=== PATIENT | female | born 1990 | race Caucasian/White ===

== ENCOUNTER 2018-02-11 12:06 | Inpatient (IN) ==
[2018-02-11] MEDS ORDERED: Ondansetron 4 MG/2 ML VIAL IVP PRN ×2 (12:44→17:26)
[2018-02-11] MEDS ORDERED: Metoclopramide 10 MG/2 ML VIAL IVP PRN (12:44)
[2018-02-11] MEDS ORDERED: Famotidine 20 MG/2 ML VIAL IVP PRN (12:44)
[2018-02-11] MEDS ORDERED: Naloxone 0.4 MG/ML INJ IVP PRN ×2 (12:44→17:26)
[2018-02-11] MEDS ORDERED: *HR* Nalbuphine 10 MG/ML AMPUL IVP PRN (12:44)
[2018-02-11] MEDS ORDERED: Ringers Solution, Lactated 1,000 ML IVC SCH (12:45)
[2018-02-11] MEDS ORDERED: D5% in 0.9% NACL 1,000 ML IVC SCH (13:00)
[2018-02-11] MEDS ORDERED: Ringers Solution, Lactated 1,000 ML ONE (13:09)
[2018-02-11 13:59] LABS: Basophils % 0.1 %; Eosinophils # 0.1 K/mcL (0.0-0.6); Eosinophils % 0.9 %; Hematocrit 38.4 % (35.3-44.9); Hemoglobin 12.6 g/dL (11.5-15.4); Immature Granulocytes % 0.5 % (0-4); Lymphocytes # 3.1 K/mcL (0.6-4.6); Lymphocytes % 19.9 %; Mean Corpuscular HGB Conc 32.8 g/dL (31.6-35.5); Mean Corpuscular Hemoglobin 27.3 pg (28.0-33.3); Mean Corpuscular Volume 83.1 fL (83.0-100.0); Mean Platelet Volume 9.7 fL (9.4-12.4); Monocytes # 1.2 K/mcL (0.0-1.3); Monocytes % 7.9 %; Neutrophils # 10.9 K/mcL (1.6-8.9); Platelet Count 281 K/mcL (140-400); Red Blood Count 4.62 M/mcL (3.82-4.97); Segmented Neutrophils % 70.7 %
[2018-02-11] MEDS ORDERED: Oxytocin 20 units/ LR 1000 mL 20 UNIT/1,000 ML BAG IVC SCH ×2 (14:30→22:32)
[2018-02-11 14:58] LABS: Amphetamine Screen,Urine Negative ng/mL (Cutoff=1000); Barbiturate Screen,Urine Negative ng/mL (Cutoff=200); Benzodiazepines Screen,Urine Negative ng/mL (Cutoff=200); Cannabinoid Screen,Urine Negative ng/mL (Cutoff = 50); Cocaine Screen,Urine Negative ng/mL (Cutoff= 300); Creatinine,Urine 35 mg/dL; Opiate Screen,Urine Negative ng/mL (Cutoff=300); Phencyclidine Screen,Urine Negative ng/mL (Cutoff=25)
[2018-02-11 14:59] LABS: Alanine Aminotransferase 8 Units/L (7-52); Aspartate Amino Transferase 9 Units/L (13-39); BUN/Creatinine Ratio 10 (6-26); Blood Urea Nitrogen 5 mg/dL (6-20); Lactate Dehydrogenase 157 Units/L (140-271); Uric Acid 4.9 mg/dL (2.3-7.6); eGFR For Non-African Americans > 60 (> 60)
--- NOTE | 2018-02-11 16:22 | OB/GYN History & Physical ---
Date of Encounter: 02/11/18 Time of Encounter: 16:06 Assessment and Plan (1) 37 weeks gestation of Current visit: Yes Status: Acute Admit to labor and delivery for induction of labor at 37w5d due to oligohydramnios and 5cm cervical dilation Epidural if desired Augmentation as needed GBS negative Anticipate vaginal delivery care with Dr. 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 Qualifiers: Fetus number: single or unspecified fetus Trimester: third trimester Qualified Code(s): O41.03X0 - Oligohydramnios, third trimester, not applicable o r unspecified (3) Elevated blood pressure reading Current visit: Yes Status: Acute Elevated blood pressure since arrival Lowest BP was 149/89 and highest BP 173/88 Denies history of chronic hypertension, previous complicated by induced hypertension Denies headache, dizziness, vision changes, RUQ pain or edema PIH labs WNL Continue to monitor BP (4) NST (non-stress test) reactive Current visit: Yes Status: Acute FHR 140 Moderate variability +15x15 accelerations, no decels History of Present Illness Chief complaint: Oligohydraminos and 37 weeks gestation of HPI: Ms. Francisco is a 27 year old female, at 37w5d for induction of labor. She presented from the OB office today after she was found to have oliogohydramnios and cervical dilation of 5 cm. She has had care with Dr. Coffey. course has been complicated by a placental separation at 14 weeks. She was unable to tolerate vitamins. She admits to good movement, contractions and vomiting. She denies vaginal bleeding or leakage of fluid. She also denies nausea, fever, chills, vision changes, dizziness, chest pain, shortness of breath, RUQ pain, dysuria or calf pain. Her prior OB history is significant for induced hypertension during while with her son and history of recurrent loss x4. She denies other past medical history or surgical history. Social history significant for smoking, but denies alcohol or illicit drug use. She takes no medications. She is allergic to cefaclor and codeine. GBS negative Blood type A- HIV NR HBsAg NR RPR NR G/C negative Varicella immune Rubella immune UDS negative Dr. 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 Past Med Surg Social Fam HX - Past Medical History Source: patient Medical history: no medical history Additional medical history: miscarriage x4 Psychiatric history: no psych history - Past Surgical History Surgical History: no surgical history - Social History Smoking Status: Current some day smoker Packs per day: <0.25 Smokeless Tobacco Status: No Alcohol use: none Drug use: none Occupational status: employed Current living situation: Home - Independent Activity Level: Independent ambulation Recent Out of Country Travel Within the Last 8 Weeks: No Exposure or Possible Exposure to Illness During Travel: No - Family History Mother Living Status: Still Living Hx Family Cardiac Disorders: Yes (htn) Hx Family Cancer: Yes (Cervical cancer) Hx Family Endocrine Disorder: Yes (DM) Obstetrical History - Pregnancies : 6 Para: 1 Term: 1 : 0 Ab's: 4 Livin - History/Complications History/Complications: Recurrent loss x4. induced hypertension with prior Medications and Allergies Allergy/AdvReac Type Severity Reaction Status Date / Time Cefaclor [From Ceclor] Allergy See Verified 02/11/18 13:44 Comments codeine AdvReac See Verified 02/11/18 13:44 Comments Review of System OB All systems PM: reviewed and no additional remarkable complaints except as stated Exam - Constitutional Constitutional: well developed, well nourished, no acute distress - HEENT HEENT: EOMI, Normocephaly, Mucus Membranes Moist - Neck Neck exam: full ROM, supple, trachea midline - Lungs Respiratory exam: CTAB - Cardiovascular Cardiovascular exam: RRR, +S1, +S2 - Abdomen Abdomen: Present: bowel sounds normal, gravid, non tender - Extremities Extremities exam: normal capillary refill, normal inspection, warm, radial pulses palpable and symmetrical Deep Tendon Reflex Grade: 2+ Normal - Vagina Vagina: Present: normal moisture - Cervix Dilation: 5 Effacement: 90 Station: -1 - Uterus Uterus exam: Present: normal size, normal contour Results Result Diagrams: 02/11/18 13:05 02/11/18 13:05 Abnormal lab results WBC 15.4 K/mcL (4.3-11.1) H 02/11/18 13:05 MCH 27.3 pg (28.0-33.3) L 02/11/18 13:05 Neutrophils # 10.9 K/mcL (1.6-8.9) H 02/11/18 13:05 BUN 5 mg/dL (6-20) L 02/11/18 13:05 Creatinine 0.49 mg/dL (0.60-1.20) L 02/11/18 13:05 AST 9 Units/L (13-39) L 02/11/18 13:05 All other labs normal. - VTE Reasons for not Prescribing Prophylaxis: Treatment not Indicated - Low risk for VTE
[2018-02-11] MEDS ORDERED: EPHEDrine 50 MG/ML VIAL IVP PRN (17:26)
[2018-02-11] MEDS ORDERED: *HR* Ropivacaine/PF 0.2% 20 ML VIAL EP ONE (17:26)
[2018-02-11] MEDS ORDERED: *HR* FentaNYL (PF) 100 MCG/2 ML VIAL EP ONE (17:26)
[2018-02-11] MEDS ORDERED: Epidural Premix (fent/bupiv) 110 ML EP SCH (17:30)
--- NOTE | 2018-02-11 17:30 | Anesthesia Evaluation PreOp ---
Date of Encounter: 02/11/18 Time of Encounter: 17:25 - Past History Planned Operation: LUIS MANUEL Cardiac History: Denies any Significant Hx Pulmonary History: Smoker (1/2pk day for 10 year), Pack/yr (5pk/yr) NON LINEAR EDITOR History: Denies Any Significant HX Other Medical History: Denies Any Significant HX, Other (PIH) Anesthesia History: No Prior Anesthetic Complications : Yes Alcohol Use: none Drug use: none Medications and Allergies Allergy/AdvReac Type Severity Reaction Status Date / Time Cefaclor [From Ceclor] Allergy See Verified 02/11/18 13:44 Comments codeine AdvReac See Verified 02/11/18 13:44 Comments - Meds/Allergy Pre-op Review Medications Reviewed: Yes Allergies Reviewed: Yes Beta Blockers on Current Med List: No Anesthesia Results - Labs 02/11/18 13:05 02/11/18 13:05 Anesthesia Exam BP 164/102 P 98 R 18 T98.8 Height: 5'3" Weight: 95.9kg NPO (# of Hours): 2 Pain Scale: 8 Pain Scale Used: Numeric (1 - 10) - HEENT Pupil (Motor): Pupils equal Mallampati: II Teeth: Normal Oral Opening: Greater than 3 - NON LINEAR EDITOR LOC: Oriented NON LINEAR EDITOR Motor: Normal RUE, Normal LUE, Normal RLE, Normal LLE, Normal Face NON LINEAR EDITOR Sensory: Normal: RUE, LUE, RLE, LLE, Face - Cardiac Rhythm: Regular Murmur: None JVD: No Carotid Bruit: No - Pulmonary Breath Sounds: bilateral Clear Respiratory Effort: Symmetrical Anesthesia Assess/Plan ASA Score: 2 Level of consciousness: Cooperative Anesthetic Plan: Epidural Autologous Blood: Yes Monitoring Plan: Standard Monitors Recovery Plan: Other
[2018-02-11] MEDS ORDERED: *HR* FentaNYL (PF) 100 MCG/2 ML VIAL ONE (17:38)
[2018-02-11] MEDS ORDERED: Lidocaine -MPF 1% 5 ML AMPUL ONE (17:38)
--- NOTE | 2018-02-11 18:15 | Anesthesia Procedures ---
Addendum entered and electronically signed by Ilan Oliva CRNA 02/11/18 20:30: Delivery Date: 02/11/18 Infant Delivery Time: 18:10 Original Note: Date of Encounter: 02/11/18 Time of Encounter: 17:42 Procedures: Anesthesia - Epidural/Spinal Patient ID/Chart reviewed: Yes Patient examined: Yes OB Eval: Gestational age: 37.5 OB Eval: : 6 OB Eval: Hx Para: 1 OB Eval: Dilated at (cm): 6 OB Eval: Contractions: Non-stressed pattern Consent Obtained: Yes Supplemental Oxygen: None/Room Air Site Prep: Aseptic Technique, Sterile prep and drape, Povidone-Iodine 1% Patient position: upright Local Anesthetic: Lidocaine 1% Amount of Local Anesthetic used: 3 Touhy Needle Gauge: 18 Touhy Needle Depth (cm): 6 Catheter Depth at Skin (cm): 15 Test Dose (1.5% Lido + Epi): Volume given (mls): 3 Test Dose Result: Negative Loading Dose: Fentanyl (mcg): 100 Loading Dose: Other: Ropivicaine 0.2% 8ml Loading Dose Administered: Thru Catheter Infusion Med: 0.125% Bupivacaine w/ 2 mcg/ml Fentanyl Infusion Rate (mls/hr): [address]: Tegaderm, Tape Interspace Used: L3-L4 Loss of Resistance (SALOME): Yes Blood: No CSF: No Paresthesia: No Procedure: LUIS MANUEL placed 1st pass in upright position without any immediate noted complications. VSS and FHT stable throughout. Vitals + FHT's: 1742 BP 167/101 P 98 R 20 1804 BP 157/79 P 111 R 18 FHT 130s
--- NOTE | 2018-02-11 18:27 | OB/GYN Procedure Note ---
Delivery - Delivery Date: 02/11/18 Provider: Adal Nguyen Delivery induction: oxytocin Delivery monitor: external FHT, external uterine Anesthesia: epidural Quantitated Blood Loss: 100 - (s) A Infant Delivery Date: 02/11/18 Delivery Time: 18:10 Presentation: vertex Position: VIKKI Route of delivery: Gender: Female Viability: Viable Pounds: 5 Ounces: 13 at 1 minute: 8 at 5 mins: 9 Specimens collected: cord blood Placenta: spontaneous Cord: 3 umbilical vessels - Repair Episiotomy: none Laceration Description: None - Complications Delivery complications: none - Disposition Mom disposition: stable in LDR [place] disposition: stable in LDR - Comments Comments: Pt is s/p of liveborn female without difficulty. weight was 5 lb 13 oz with APGARS 8 at 1 min and 9 at 5 minutes. No laceration. Spontaneous delivery of normal placenta with 3 VC. Mother and recovered in LDR.
[2018-02-11] MEDS ORDERED: *HR* Labetalol 20 MG/4 ML SYRINGE IVP ONE ×2 (19:06→19:07)
[2018-02-11] MEDS ORDERED: Rho Immune Globulin 1,500 UNIT SYRINGE IM PRN (22:32)
[2018-02-11] MEDS ORDERED: Acetaminophen 325 MG TABLET PO PRN (22:32)
[2018-02-11] MEDS ORDERED: Measles/Mumps/Rubella Vacc 0.5 ML VIAL SQ PRN (22:32)
[2018-02-12] MEDS ORDERED: *HR* Labetalol 20 MG/4 ML SYRINGE IVP ONE (00:54)
[2018-02-12 06:15] LABS: Basophils % 0.2 %; Eosinophils # 0.1 K/mcL (0.0-0.6); Eosinophils % 0.7 %; Hematocrit 34.8 % (35.3-44.9); Hemoglobin 11.2 g/dL (11.5-15.4); Immature Granulocytes % 0.4 % (0-4); Lymphocytes # 4.2 K/mcL (0.6-4.6); Mean Corpuscular HGB Conc 32.2 g/dL (31.6-35.5); Mean Corpuscular Hemoglobin 27.3 pg (28.0-33.3); Mean Corpuscular Volume 84.7 fL (83.0-100.0); Mean Platelet Volume 9.9 fL (9.4-12.4); Monocytes # 1.3 K/mcL (0.0-1.3); Monocytes % 7.6 %; Platelet Count 252 K/mcL (140-400); Red Blood Count 4.11 M/mcL (3.82-4.97); Red Cell Distribution Width 14.1 % (11.5-14.5); Segmented Neutrophils % 66.1 %
[2018-02-12] MEDS: Prenatal Vit/FA 1 EACH TABLET PO SCH (08:48)
[2018-02-12] MEDS ORDERED: Benzocaine/Menthol 56 GM AEROSOL SPRAY TP PRN (08:56)
[2018-02-12] MEDS ORDERED: Benzocaine/Menthol 56 GM AEROSOL SPRAY TP ONE (08:57)
--- NOTE | 2018-02-12 09:01 | OB/GYN Progress Note ---
Date of Encounter: 02/12/18 Time of Encounter: 08:58 - Assessment and Plan (1) Status post vaginal delivery Current Visit: Yes Status: Acute Pt meeting all milestones. Anticipate discharge home this evening or tomorrow am depending on blood pressure control. (2) Mother currently breast-feeding Current Visit: Yes Status: Acute (3) Elevated blood pressure reading Current Visit: Yes Status: Acute Severe range BP's overnight. BP this am 150's/90's. Plan for labetalol per discussion with Dr. Nguyen. Subjective - Subjective Interval history: Pt reports some mild cramping, mild perineal pain, and some tenderness at epidural site. No other complaints. No BACK or vision changes. Patient reports: appetite normal, voiding normally, pain well controlled, ambulating normally [place]: doing well, nursing well Objective - Latest Vital Signs Latest vital signs: Vital Signs Temp Pulse Resp BP Pulse Ox 02/12/18 08:30 98.1 F 93 16 154/94 96 02/12/18 03:55 98.6 F 100 14 145/78 97 02/12/18 00:40 165/104 02/11/18 23:40 97.6 F 113 14 161/96 96 02/11/18 22:32 98.2 F 108 14 161/92 96 02/11/18 21:30 98.3 F 104 14 147/85 97 Intake and Output 02/11/18 02/12/18 02/12/18 23:59 07:59 15:59 Intake Total 500 / 500 Output Total 100 / 100 900 / 900 300 / 300 Balance -100 / -100 -400 / -400 -300 / -300 Intake: Oral 500 / 500 Output: Urine 900 / 900 300 / 300 Estimated Blood Loss 100 / 100 Other: Weight 95.9 kg - Exam Lungs: bilateral: normal Chest: Normal S1, Normal S2 Extremities: Present: normal, edema (mild edema in ankles bilaterally) Abdomen: Present: soft. Absent: tenderness Uterus: Present: firm Uterus Position: 2 Fingers Below Umbilicus Comments: normal reflexes - Labs Labs: Laboratory Results - last 24 hr 02/11/18 02/11/18 02/11/18 13:05 13:05 13:05 WBC 15.4 H RBC 4.62 Hgb 12.6 Hct 38.4 MCV 83.1 MCH 27.3 L MCHC 32.8 RDW 14.0 Plt Count 281 MPV 9.7 Immature Gran % 0.5 Seg Neutrophils % 70.7 Lymphocytes % 19.9 Monocytes % 7.9 Eosinophils % 0.9 Basophils % 0.1 Neutrophils # 10.9 H Lymphocytes # 3.1 Monocytes # 1.2 Eosinophils # 0.1 Basophils # 0.0 BUN 5 L Creatinine 0.49 L Est GFR ( Amer) > 60 Est GFR (Non-Af Amer) > 60 BUN/Creatinine Ratio 10 Uric Acid 4.9 AST 9 L ALT 8 Lactate Dehydrogenase 157 Urine Creatinine 35 Protein/Creatinin Ratio 0.20 Urine Total Protein 7 Urine Opiates Screen Negative Ur Barbiturates Screen Negative Ur Phencyclidine Scrn Negative Ur Amphetamines Screen Negative U Benzodiazepines Scrn Negative Urine Cocaine Screen Negative U Marijuana (THC) Screen Negative Ur Drug Screen Interp See Below Baby's Blood Type Mother's Blood Type Rhogam Indicated 02/11/18 02/12/18 18:35 05:36 WBC 16.7 H RBC 4.11 Hgb 11.2 L Hct 34.8 L MCV 84.7 MCH 27.3 L MCHC 32.2 RDW 14.1 Plt Count 252 MPV 9.9 Immature Gran % 0.4 Seg Neutrophils % 66.1 Lymphocytes % 25.0 Monocytes % 7.6 Eosinophils % 0.7 Basophils % 0.2 Neutrophils # 11.0 H Lymphocytes # 4.2 Monocytes # 1.3 Eosinophils # 0.1 Basophils # 0.0 BUN Creatinine Est GFR ( Amer) Est GFR (Non-Af Amer) BUN/Creatinine Ratio Uric Acid AST ALT Lactate Dehydrogenase Urine Creatinine Protein/Creatinin Ratio Urine Total Protein Urine Opiates Screen Ur Barbiturates Screen Ur Phencyclidine Scrn Ur Amphetamines Screen U Benzodiazepines Scrn Urine Cocaine Screen U Marijuana (THC) Screen Ur Drug Screen Interp Baby's Blood Type A RH POSITIVE Mother's Blood Type A RH NEGATIVE Rhogam Indicated YES
[2018-02-12] MEDS ORDERED: Ondansetron ODT 4 MG TAB.RAPDIS SL PRN (09:57)
[2018-02-12 18:59] LABS: Alanine Aminotransferase 7 Units/L (7-52); Aspartate Amino Transferase 11 Units/L (13-39); BUN/Creatinine Ratio 10 (6-26); Blood Urea Nitrogen 6 mg/dL (6-20); Lactate Dehydrogenase 151 Units/L (140-271); Uric Acid 5.1 mg/dL (2.3-7.6); eGFR For Non-African Americans > 60 (> 60)
[2018-02-13] MEDS ORDERED: NIFEdipine XL (24 HR) 30 MG TAB.ER.24 PO SCH (03:21)
--- NOTE | 2018-02-13 03:30 | Event Note ---
Date of Encounter: 02/13/18 Time of Encounter: 03:29 Severe range BP noted. Procardia 60XL ordered in collaboration with Dr. Moss.
--- NOTE | 2018-02-13 03:33 | OB Labor Progress Note ---
Date of Encounter: 02/12/18 Time of Encounter: 23:57 Labor Progress Note - Subjective Subjective: Pt comfortable with epidural. - Vital Signs Vital Signs: VSS - Heart Tones Heart Tones: Category II, minimal variability, tachycardia - Plan Physician notified: Yes Physician notified details: Dr. Moss aware and has viewed tracing. POC discussed with Dr. Moss. Will await second dose of PCN if FHT remain stable. Anticipate .
[2018-02-13 07:48] LABS: Basophils % 0.2 %; Eosinophils # 0.2 K/mcL (0.0-0.6); Eosinophils % 1.5 %; Hemoglobin 11.5 g/dL (11.5-15.4); Immature Granulocytes % 0.6 % (0-4); Lymphocytes # 3.9 K/mcL (0.6-4.6); Lymphocytes % 25.5 %; Mean Corpuscular HGB Conc 31.9 g/dL (31.6-35.5); Mean Corpuscular Hemoglobin 27.7 pg (28.0-33.3); Mean Corpuscular Volume 86.7 fL (83.0-100.0); Mean Platelet Volume 9.6 fL (9.4-12.4); Monocytes # 1.3 K/mcL (0.0-1.3); Monocytes % 8.4 %; Neutrophils # 9.8 K/mcL (1.6-8.9); Platelet Count 250 K/mcL (140-400); Red Blood Count 4.15 M/mcL (3.82-4.97); Red Cell Distribution Width 14.4 % (11.5-14.5); Segmented Neutrophils % 63.8 %
[2018-02-13 08:07] LABS: Alanine Aminotransferase 7 Units/L (7-52); Aspartate Amino Transferase 10 Units/L (13-39); BUN/Creatinine Ratio 15 (6-26); Blood Urea Nitrogen 6 mg/dL (6-20); Lactate Dehydrogenase 158 Units/L (140-271); Uric Acid 5.4 mg/dL (2.3-7.6); eGFR For Non-African Americans > 60 (> 60)
[2018-02-13] MEDS: Prenatal Vit/FA 1 EACH TABLET PO SCH (08:40)
--- NOTE | 2018-02-13 10:14 | OB/GYN Progress Note ---
Date of Encounter: 02/13/18 Time of Encounter: 08:00 - Assessment and Plan (1) Status post vaginal delivery Current Visit: Yes Status: Acute 27yo female, PPD#2 s/p at 37+5wks GA for oligohydramnios with a favorable cervix. 1. management - regular diet with PRN colace/miralax - voiding spontaneously without si/sx of UTI - pain controlled with po ibuprofen/tylenol - ambulating with minimal assistance, appropriate 2. PreE - patient with severe range BP in PP setting - labs MANAN this AM, will repeat tomorrow AM - given 300mg of labetalol BID, changed to procardia 60mg XL - currently asymptomatic, HAS NOT yet rec'd mag - should patient become symptomatic/elevated BP/elevated labs, will start Mag - given pre-eclampsia precaution(S), patient aware - will continue procardia with repeat lab work in AM - continue q4hr VS Dispo: Patient doing well today, continue to monitor VS q4hrs. Continue procardia, cancel labetalol now that patient is PP. Repeat [facility] labs in AM. Mery CROWE MD, DUNIA Subjective - Subjective Principal diagnosis: Interval history: PPD#2 from for oligohydramnios. Patient doing well this AM. Diagnosed with pre-eclampsia via pressures and symptoms. Patient was not started on magnesium. She was initially continued on labetalol 300mg BID, however her BP remained severely elevated >160/100. At 0300 this AM, she was given 60mg of procardia XL. She did remain, however, asymptomatic. PreE labs this AM were MANAN, as this was discussed with the patient at bedside. Her VS will be checked every 4 hours as well. SHould her labs elevated or symptoms presents with elevation of BP we will start IV magnesium. Obstetrically, the patient is meeting all milestones in the setting. Patient reports: appetite normal, voiding normally, pain well controlled, ambulating normally [place]: doing well Objective - Latest Vital Signs Latest vital signs: Vital Signs Temp Pulse Resp BP Pulse Ox 02/13/18 09:17 98.1 F 87 16 131/77 98 02/13/18 03:15 98.2 F 90 18 162/101 99 02/13/18 00:05 98.5 F 88 16 158/93 98 02/12/18 22:00 97.5 F L 83 16 140/93 98 02/12/18 19:55 97.9 F 90 16 151/87 98 02/12/18 18:09 86 16 153/89 98 02/12/18 15:38 97.6 F 89 14 175/96 Intake and Output 02/12/18 02/13/18 02/13/18 23:59 07:59 15:59 Intake Total 840 / 840 Output Total 400 / 400 1900 / 1900 Balance -400 / -400 -1060 / -1060 Intake: Oral 840 / 840 Output: Urine 400 / 400 1900 / 1900 Other: Weight 94.801 kg Patient Weight 02/13/18 23:59 Weight 94.801 kg - Exam Lungs: left: normal Extremities: Present: normal Abdomen: Present: normal appearance Uterus: Present: normal, firm Uterus Position: 2 Fingers Below Umbilicus - Labs Labs: Laboratory Results - last 24 hr 02/11/18 02/12/18 02/13/18 18:35 18:25 07:22 WBC 15.4 H RBC 4.15 Hgb 11.5 Hct 36.0 MCV 86.7 MCH 27.7 L MCHC 31.9 RDW 14.4 Plt Count 250 MPV 9.6 Immature Gran % 0.6 Seg Neutrophils % 63.8 Lymphocytes % 25.5 Monocytes % 8.4 Eosinophils % 1.5 Basophils % 0.2 Neutrophils # 9.8 H Lymphocytes # 3.9 Monocytes # 1.3 Eosinophils # 0.2 Basophils # 0.0 BUN 6 Creatinine 0.58 L Est GFR ( Amer) > 60 Est GFR (Non-Af Amer) > 60 BUN/Creatinine Ratio 10 Uric Acid 5.1 AST 11 L ALT 7 Lactate Dehydrogenase 151 Screen NEGATIVE Rhogam Req for Mother 1 02/13/18 07:22 WBC RBC Hgb Hct MCV MCH MCHC RDW Plt Count MPV Immature Gran % Seg Neutrophils % Lymphocytes % Monocytes % Eosinophils % Basophils % Neutrophils # Lymphocytes # Monocytes # Eosinophils # Basophils # BUN 6 Creatinine 0.41 L Est GFR ( Amer) > 60 Est GFR (Non-Af Amer) > 60 BUN/Creatinine Ratio 15 Uric Acid 5.4 AST 10 L ALT 7 Lactate Dehydrogenase 158 Screen Rhogam Req for Mother
[2018-02-13 16:49] VITALS: BP 157/91
--- NOTE | 2018-02-13 18:06 | Event Note ---
Date of Encounter: 02/13/18 Time of Encounter: 17:59 27yo PPD#2 s/p with PP hypertension - acute hypertension versus atypical pre-eclampsia without severe features. Patient required two doses of IV anti- hypertensive medication(S) with severe range BP. Her labs have repeatedly been normal, as she also has not required IV meds for 15+hrs. The patient was started on 60mg procardia XL x1 at 0300 and has since had elevated pressures. As discussed with the patient this AM, we would like to keep her through the morning and re-evaluate discharge as she had severe range BP less than 24 hrs ago. She is aware of the risks of pre-eclampsia and eclampsia. Despite the risks of her leaving prior to 24hrs of being normotensive on a new medication - she is adamant to leave. The patient has decided to leave against medical advice despite the risks as she would like to be home with her other children and who has to work tomorrow any (they) need the money to do so. An rx was written for 30mg Procardia XL BID for 30 days. The patient will f/u with Dr. Coffey in the setting. We discussed si/sx of be aware of should she have change from baseline while at home. Mother of patient at bedside has a BP cuff that she will allow her to use every 4 hours. MD YOGESH MEJIA [facility]
--- NOTE | 2018-02-13 18:10 | Discharge Summary ---
Date of Encounter: 02/13/18 Time of Encounter: 17:59 - Discharge Diagnosis (1) Status post vaginal delivery Priority: Primary Status: Acute Comments: 27yo female, PPD#2 with uncomplicated delivery for oligohydramnios on . Patient doing well from the obstetrical standpoint however began to have severe range BP overnight on PPD#1. She was given multiple doses of IV labetalol before started 60mg procardia XL at 0300 this morning. PreE labs were negative as she did not have severe features with elevated pressures, and remained asymptomatic since the dose. See note in charge (EVENT NOTE) as the patient signed out AMA. Our plan was to keep patient until PPD#3 and re-evaluate her BP and medication(s) with plans for discharge to home with procardia 30mg BID. Despite our efforts and educating the patient on potential seizures at home should she progress to severe eclampsia, potentially becoming a fatal event - she still decided to leave AMA. Paperwork was signed with the patient at bedside as we gave her an rx for her BP. Mother of patient stated to have a wrist cuff so she could monitor her BP at home. I discussed si/sx for the patient to be aware of should she change from baseline. The patient was discharged to home on the evening of PPD#2, against medical advice. MD JACKIE OBG[facility] [place] - Discharge Medications Allergies/Adverse Reactions: Allergy/AdvReac Type Severity Reaction Status Date / Time Cefaclor [From Ceclor] Allergy See Verified 02/11/18 13:44 Comments codeine AdvReac See Verified 02/11/18 13:44 Comments Data Procedures and tests throughout hospitalization: Laboratory Tests 02/11/18 02/11/18 02/11/18 13:05 13:05 13:05 WBC 15.4 H RBC 4.62 Hgb 12.6 Hct 38.4 MCV 83.1 MCH 27.3 L MCHC 32.8 RDW 14.0 Plt Count 281 MPV 9.7 Immature Gran % 0.5 Seg Neutrophils % 70.7 Lymphocytes % 19.9 Monocytes % 7.9 Eosinophils % 0.9 Basophils % 0.1 Neutrophils # 10.9 H Lymphocytes # 3.1 Monocytes # 1.2 Eosinophils # 0.1 Basophils # 0.0 BUN 5 L Creatinine 0.49 L Est GFR ( Amer) > 60 Est GFR (Non-Af Amer) > 60 BUN/Creatinine Ratio 10 Uric Acid 4.9 AST 9 L ALT 8 Lactate Dehydrogenase 157 Urine Creatinine 35 Protein/Creatinin Ratio 0.20 Urine Total Protein 7 Urine Opiates Screen Negative Ur Barbiturates Screen Negative Ur Phencyclidine Scrn Negative Ur Amphetamines Screen Negative U Benzodiazepines Scrn Negative Urine Cocaine Screen Negative U Marijuana (THC) Screen Negative Ur Drug Screen Interp See Below Screen Baby's Blood Type Mother's Blood Type Rhogam Indicated Rhogam Req for Mother 02/11/18 02/12/18 02/12/18 18:35 05:36 18:25 WBC 16.7 H RBC 4.11 Hgb 11.2 L Hct 34.8 L MCV 84.7 MCH 27.3 L MCHC 32.2 RDW 14.1 Plt Count 252 MPV 9.9 Immature Gran % 0.4 Seg Neutrophils % 66.1 Lymphocytes % 25.0 Monocytes % 7.6 Eosinophils % 0.7 Basophils % 0.2 Neutrophils # 11.0 H Lymphocytes # 4.2 Monocytes # 1.3 Eosinophils # 0.1 Basophils # 0.0 BUN 6 Creatinine 0.58 L Est GFR ( Amer) > 60 Est GFR (Non-Af Amer) > 60 BUN/Creatinine Ratio 10 Uric Acid 5.1 AST 11 L ALT 7 Lactate Dehydrogenase 151 Urine Creatinine Protein/Creatinin Ratio Urine Total Protein Urine Opiates Screen Ur Barbiturates Screen Ur Phencyclidine Scrn Ur Amphetamines Screen U Benzodiazepines Scrn Urine Cocaine Screen U Marijuana (THC) Screen Ur Drug Screen Interp Screen NEGATIVE Baby's Blood Type A RH POSITIVE Mother's Blood Type A RH NEGATIVE Rhogam Indicated YES Rhogam Req for Mother 1 02/13/18 02/13/18 07:22 07:22 WBC 15.4 H RBC 4.15 Hgb 11.5 Hct 36.0 MCV 86.7 MCH 27.7 L MCHC 31.9 RDW 14.4 Plt Count 250 MPV 9.6 Immature Gran % 0.6 Seg Neutrophils % 63.8 Lymphocytes % 25.5 Monocytes % 8.4 Eosinophils % 1.5 Basophils % 0.2 Neutrophils # 9.8 H Lymphocytes # 3.9 Monocytes # 1.3 Eosinophils # 0.2 Basophils # 0.0 BUN 6 Creatinine 0.41 L Est GFR ( Amer) > 60 Est GFR (Non-Af Amer) > 60 BUN/Creatinine Ratio 15 Uric Acid 5.4 AST 10 L ALT 7 Lactate Dehydrogenase 158 Urine Creatinine Protein/Creatinin Ratio Urine Total Protein Urine Opiates Screen Ur Barbiturates Screen Ur Phencyclidine Scrn Ur Amphetamines Screen U Benzodiazepines Scrn Urine Cocaine Screen U Marijuana (THC) Screen Ur Drug Screen Interp Screen Baby's Blood Type Mother's Blood Type Rhogam Indicated Rhogam Req for Mother Labs on day of discharge: Labs from last 24 hours 02/13/18 02/13/18 02/12/18 07:22 07:22 18:25 WBC 15.4 H RBC 4.15 Hgb 11.5 Hct 36.0 MCV 86.7 MCH 27.7 L MCHC 31.9 RDW 14.4 Plt Count 250 MPV 9.6 Immature Gran % 0.6 Seg Neutrophils % 63.8 Lymphocytes % 25.5 Monocytes % 8.4 Eosinophils % 1.5 Basophils % 0.2 Neutrophils # 9.8 H Lymphocytes # 3.9 Monocytes # 1.3 Eosinophils # 0.2 Basophils # 0.0 BUN 6 6 Creatinine 0.41 L 0.58 L Est GFR ( Amer) > 60 > 60 Est GFR (Non-Af Amer) > 60 > 60 BUN/Creatinine Ratio 15 10 Uric Acid 5.4 5.1 AST 10 L 11 L ALT 7 7 Lactate Dehydrogenase 158 151 Date of admission: 02/11/18 12:06 Primary care physician: PCP NONE Consults: 02/11/18 22:32 Consult to Audio Visual Production Specialist [CONS] Routine Comment: Vaginal delivery, consult needed Anticipated date of discharge: 02/13/18 (Patient DC to home AMA) - Patient Status Disposition: Home, Self-Care Condition: Good Functional capacity at discharge: independent ambulation Overall status at discharge: patient is progressing back to baseline - Discharge Instructions Instructions: Bleeding (GEN), Depression (GEN), Perineal Care (DC) Follow Up With: NONE,PCP [Primary Care Provider] - - Diet and Activity Activity: increase activity as tolerated Diet: advance to your usual diet Hospital Course [employer]ER Time Attestation: Total time spent providing and/or coordinating discharge services: Exam - Constitutional Vitals: Temp Pulse Resp BP Pulse Ox 97.8 F 103 14 157/91 98 02/13/18 16:48 02/13/18 16:48 02/13/18 16:48 02/13/18 16:48 02/13/18 12:00 General appearance IM: A&O X 0 - Respiratory Respiratory exam: Present: CTAB - Cardiovascular Cardiovascular exam IM: Present: RRR - GI/Abdominal GI/Abdominal exam IM: normal bowel sounds Incision: normal - Rectal Rectal exam: deferred - Uterus Position: 2 Fingers Below Umbilicus - Extremities Exam Extremities exam IM: Present: normal inspection - Neurological Exam Neurological exam: CN II-XII intact - VTE Reasons for not Prescribing Prophylaxis: Treatment not Indicated - Low risk for VTE
== END 2018-02-13 18:32 | disposition left against medical advice (07) | DRG 807 ==
LOC: 1NENULAB 12:06 → 1NENUOBS 22:09
PROVIDERS: ADMIT Obstetrics & Gynecology; ATTEND Obstetrics & Gynecology

== ENCOUNTER 2020-03-27 22:53 | Inpatient (IN) ==
[2020-03-27 22:10] LABS: Bacteria,Urine Few per hpf (None-Few); Basophils % 0.1 %; Bilirubin,Urine Negative (Negative); Blood,Urine Negative (Negative); Clarity,Urine Clear (Clear); Color,Urine Colorless (Yellow); Eosinophils # 0.1 K/mcL (0.0-0.6); Eosinophils % 0.8 %; Glucose,Urine (UA) Normal (Normal); Immature Granulocytes % 0.4 % (0-4); Ketones,Urine Negative (Negative); Leukocyte Esterase,Urine Small (Negative); Lymphocytes # 3.5 K/mcL (0.6-4.6); Lymphocytes % 22.5 %; Mean Corpuscular HGB Conc 32.4 g/dL (31.6-35.5); Mean Corpuscular Volume 86.2 fL (83.0-100.0); Mean Platelet Volume 9.6 fL (9.4-12.4); Monocytes # 1.4 K/mcL (0.0-1.3); Monocytes % 9.2 %; Neutrophils # 10.4 K/mcL (1.6-8.9); Nitrite,Urine Negative (Negative); Platelet Count 272 K/mcL (140-400); Protein,Urine Negative (Neg-Trace); RBC,Urine 0-3 per hpf (0-3); Red Blood Count 4.29 M/mcL (3.82-4.97); Red Cell Distribution Width 13.5 % (11.5-14.5); Specific Gravity,Urine 1.007 (1.010-1.025); Squamous Epithelial Cell,Urine Few per hpf (None-Few); Urobilinogen,Urine Normal (Normal); White Blood Count 15.5 K/mcL (4.3-11.1)
[2020-03-27 22:19] LABS: Protein/Creatinine Ratio,Urine 0.56 mg/mg (0.00-0.20)
[2020-03-27 22:29] LABS: Alanine Aminotransferase 5 Units/L (7-52); Aspartate Amino Transferase 7 Units/L (13-39); BUN/Creatinine Ratio 13 (6-26); Blood Urea Nitrogen 5 mg/dL (6-20); Lactate Dehydrogenase 114 Units/L (140-271); Uric Acid 4.5 mg/dL (2.3-7.6); eGFR For African Americans > 60 (> 60); eGFR For Non-African Americans > 60 (> 60)
[~2020-03-27 22:53] MED LIST: *HR* Labetalol 20 MG/4 ML SYRINGE IVP ONE; Ringers Solution, Lactated 1,000 ML ONE
[2020-03-27] MEDS ORDERED: *HR* Nalbuphine 10 MG/ML AMPUL IV PRN (23:19)
[2020-03-27] MEDS ORDERED: Metoclopramide 10 MG/2 ML VIAL IVP PRN (23:19)
[2020-03-27] MEDS ORDERED: Naloxone 0.4 MG/ML INJ IVP PRN (23:19)
[2020-03-27] MEDS ORDERED: Famotidine 20 MG/2 ML VIAL IVP PRN (23:19)
[2020-03-27] MEDS ORDERED: Lidocaine 1% 20 ML MDV INFILT PRN (23:19)
[2020-03-27] MEDS ORDERED: Ringers Solution, Lactated 1,000 ML IVC SCH (23:30)
[2020-03-27] MEDS ORDERED: *HR* Labetalol 20 MG/4 ML SYRINGE IVP PRN ×2 (23:39)
[2020-03-27] MEDS ORDERED: *HR* Labetalol 20 MG/4 ML SYRINGE IVP ONE (23:40)
[2020-03-27] MEDS: Vancomycin 1,500 MG/265 ML IV.SOLN IVPB SCH (23:50)
[2020-03-28] MEDS ORDERED: Vancomycin (wt based) 1,000 MG VIAL IV SCH
[2020-03-28] MEDS: Magnesium Sulf 20 gm/SW 500mL 20 GM/500 ML IV.SOLN IVC SCH ×3 (00:06→19:16)
[2020-03-28] MEDS ORDERED: Calcium Gluconate 1,000 MG/10 ML VIAL ONE (00:30)
[2020-03-28] MEDS ORDERED: EPHEDrine 50 MG/ML VIAL IVP PRN (04:06)
[2020-03-28] MEDS ORDERED: Epidural Premix (fent/bupiv) 110 ML EP ONE (04:14)
[2020-03-28] MEDS ORDERED: Epidural Premix (fent/bupiv) 110 ML EP SCH (04:15)
[2020-03-28] MEDS ORDERED: miSOPROStoL 25 MCG TABLET PO PRN (05:16)
[2020-03-28] MEDS ORDERED: Acetaminophen 325 MG TABLET PO ONE (05:17)
[2020-03-28] MEDS: Vancomycin 1,500 MG/265 ML IV.SOLN IVPB SCH (08:01)
[2020-03-28] MEDS ORDERED: Oxytocin 20 units/ LR 1000 mL 20 UNIT/1,000 ML BAG IVC SCH (10:00)
[2020-03-28] MEDS ORDERED: *HR* Labetalol 20 MG/4 ML SYRINGE IVP ONE ×2 (10:37→10:38)
[2020-03-28] MEDS ORDERED: Ropivacaine/PF 0.2% 20 ML VIAL ONE (11:36)
[2020-03-28] MEDS ORDERED: Acetaminophen 325 MG TABLET PO PRN (14:03)
[2020-03-28] MEDS ORDERED: Benzocaine/Menthol 56 GM AEROSOL SPRAY TP PRN (14:03)
[2020-03-28] MEDS ORDERED: Measles/Mumps/Rubella Vacc 0.5 ML VIAL SQ PRN (14:03)
[2020-03-28] MEDS ORDERED: Rho Immune Globulin 1,500 UNIT SYRINGE IM PRN (14:03)
[2020-03-28] MEDS: Oxytocin 20 units/ LR 1000 mL 20 UNIT/1,000 ML BAG IVC SCH (19:18)
[2020-03-29] MEDS: Oxytocin 20 units/ LR 1000 mL 20 UNIT/1,000 ML BAG IVC SCH (03:17)
[2020-03-29] MEDS: Magnesium Sulf 20 gm/SW 500mL 20 GM/500 ML IV.SOLN IVC SCH (03:18)
[2020-03-29 05:09] LABS: Basophils % 0.2 %; Eosinophils # 0.1 K/mcL (0.0-0.6); Eosinophils % 0.9 %; Hematocrit 36.1 % (35.3-44.9); Hemoglobin 11.7 g/dL (11.5-15.4); Immature Granulocytes % 0.5 % (0-4); Mean Corpuscular HGB Conc 32.4 g/dL (31.6-35.5); Mean Corpuscular Hemoglobin 28.2 pg (28.0-33.3); Mean Platelet Volume 9.9 fL (9.4-12.4); Monocytes # 1.6 K/mcL (0.0-1.3); Monocytes % 9.8 %; Neutrophils # 11.6 K/mcL (1.6-8.9); Platelet Count 251 K/mcL (140-400); Red Blood Count 4.15 M/mcL (3.82-4.97); Red Cell Distribution Width 13.6 % (11.5-14.5); Segmented Neutrophils % 70.6 %; White Blood Count 16.4 K/mcL (4.3-11.1)
[2020-03-29] MEDS: Prenatal Vit/FA 1 EACH TABLET PO SCH (08:47)
[2020-03-29] MEDS: NIFEdipine XL (24 HR) 30 MG TAB.ER.24 PO SCH (09:10)
[2020-03-30] MEDS: NIFEdipine XL (24 HR) 30 MG TAB.ER.24 PO SCH (08:26)
[2020-03-30] MEDS: Prenatal Vit/FA 1 EACH TABLET PO SCH (08:26)
[2020-03-30] MEDS ORDERED: NIFEdipine XL (24 HR) 30 MG TAB.ER.24 PO ONE (08:46)
[2020-03-30] MEDS ORDERED: NIFEdipine XL (24 HR) 60 MG TAB.ER.24 PO SCH (09:00)
[2020-03-30 11:35] VITALS: BP 128/89
[2020-03-31] MEDS ORDERED: NIFEdipine XL (24 HR) 60 MG TAB.ER.24 PO SCH (09:00)
== END 2020-03-30 02:30 | disposition home or self-care (01) | DRG 807 ==
LOC: 1NENULAB → 1NENUOBS 03-28 14:43
PROVIDERS: ADMIT Registered Nurse; ATTEND Registered Nurse